=== PATIENT | female | born 1945 | race Hispanic/Latino ===

== ENCOUNTER 2024-10-18 10:12 | Emergency (ER) | payer MEDICARE, SELFPAY ==
[2024-10-18 10:16] VITALS: BP 179/70
[2024-10-18 10:17] VITALS: BP 179/70
[2024-10-18 10:38] LABS: % Basophils 0.4 % (0-2); % Eosinophils 0.5 % (0-6); % Immature Granulocytes 0.4 % (0-0.5); % Lymphocytes 14.9 % (20.5-51.1); % Monocytes 5.8 % (1.7-9.3); Absolute Eosinophils 0.1 10^3/uL (0-0.7); Absolute Lymphocytes 1.7 10^3/uL (1.2-3.4); Absolute Monocytes 0.7 10^3/uL (0.1-0.6); Absolute Neutrophils 8.9 10^3/uL (1.4-6.5); Hematocrit 38.3 % (37.0-47.0); Hemoglobin 13.8 g/dL (12.0-16.0); Mean Corpuscular Hgb 29.8 pg (27.0-31.0); Mean Corpuscular Volume 82.7 fL (81.0-99.0); Mean Platelet Volume 9.5 fL (7.4-10.4); Nucleated Red Blood Cells % 0 %; Platelet Count 209 10^3/uL (130-400); Red Blood Cell Count 4.63 10^6/uL (4.20-5.40); Red Cell Dist. Width 12.3 % (11.5-14.5); White Blood Cell Count 11.3 10^3/uL (4.8-10.8)
[2024-10-18] MEDS: TORADOL 15 MG IV (10:43)
[2024-10-18] MEDS: PROTONIX IV 40 MG IV (10:43)
[2024-10-18] MEDS: NSS 500 IV (10:44)
--- NOTE | 2024-10-18 10:44 | ED.GENMED ---
History of Present Illness
General
Chief Complaint: Abdominal Symptoms
Source: patient
Exam Limitations: none
Time Seen by Provider: 10/18/24 10:31
Nursing documentation reviewed up to this point in time: agreed with
History of Present Illness
History of Present Illness:
Patient presents to ED secondary to persistent lower abdominal pain over the past 1 week. Abdominal pain described as lower, nonradiating, without any alleviating or exacerbating factors. Denies fever or chills. Patient was evaluated by her
primary care physician and was diagnosed with UTI, for which she has been taking antibiotics for the past 7 days, without improvement symptoms. Over the past 2 days, per aide, patient has had blood noted with urination. Denies nausea, vomiting, or
diarrhea. Denies loss of appetite. Patient also has been experiencing lack of bowel movements as well as lack of urination.
Past History
Past History
ED Past Medical History: Hypercholesterolemia
ED Past Surgical History: Negative Cardiac
Social History
Tobacco: Non-smoker
Alcohol: None
Drug: None
Personal:
Living: with family
Employment: Not employed
Family History
Family History: Other (non cotributory)
Review of Systems
Review of Systems
Allergies reviewed?: Yes
All Other Systems: ROS reviewed and negative except as documented in HPI and ROS
Constitutional: Reports no symptoms; Denies fever
Respiratory: Reports no symptoms
Cardiac: Reports no symptoms
ABD/GI: Reports abdominal pain; Denies vomiting or diarrhea
: Reports bleeding
Musculoskeletal: Reports no symptoms
Skin: Reports no symptoms
Neurological: Reports no symptoms
Phy Exam
Physical Exam
Physical Exam:
Physical Exam
General: mild painful distress, not acutely ill. afebrile
Head: nc/at. eomi
Neck: supple. normal range of motion.
Heart: s1/s2 regular rate and rhythm, no murmur.
Lungs: no acute respiratory distress. clear bilaterally
Abdomen: normal bowel sounds. mild LLQ/suprapubic tenderness to palpation
Neuro: alert and oriented x 3. no focal neurological deficits
Skin: no rash
Psychiatric: well kept. interactive and cooperative
Extremities: no edema. no calf tenderness.
Course
Orders/Labs/Results
Orders:
Orders
10/18/24 10:29
Complete Blood Count/With Diff Urgent
Comprehensive Metabolic Panel Urgent
Lactic Acid Q4H
Comment: ON ICE, CANCEL 2ND ORDER IF FIRST LACTIC ACID LEVEL <2
10/18/24 10:36
CT Abd/pelvis W Iv Cont Urgent
Comment:
Reason For Exam: LLQ pain
0.9% Sodium Chloride 500 ml [Nss] 500 ml IV BOLUS
Ketorolac [Toradol] 15 mg IV NOW STA
Pantoprazole [Protonix IV] 40 mg IV NOW STA
10/18/24 12:34
Urinalysis Reflex To Culture Urgent
Date Specimen was Collected: 10/18/24
Time Specimen was Collected: 12:32
Urine Microscopic Reflex Cult Urgent
Urine Culture Urgent
ALAN Source: U
Specimen Description:
Date Specimen was Collected: 10/18/24
Time Specimen was Collected: 12:32
10/18/24 12:44
CefTRIAXone [Rocephin] 1,000 mg IV NOW STA
Abnormal Lab Results
10/18/24 10/18/24
10:29 12:34
WBC 11.3 H 10^3/uL
(4.8-10.8)
Absolute Neuts (auto) 8.9 H 10^3/uL
(1.4-6.5)
Absolute Monos (auto) 0.7 H 10^3/uL
(0.1-0.6)
Neutrophils % 78.0 H %
(42.2-75.2)
Lymphocytes % 14.9 L %
(20.5-51.1)
Glucose 151 H mg/dl
(70-99)
Lactic Acid 3.2 H mmol/L
(0.7-2.0)
Ur Occult Blood Reflex 4+ A
(Negative)
Leukocyte Esterase Rfl 2+ A
(Negative)
Urine RBC 11-15 A /HPF
(0-2)
Urine WBC (Reflex) 26-30 A /HPF
(0-5)
Urine Bacteria (Reflex) Few A
(Negative)
Urine Albumin (Reflex) 1+ A
(Neg - Trace)
10/18/24 10:29
10/18/24 10:29
Vital Signs
Initial and Last Documented VS:
Initial Vital Signs
Temp Pulse Resp BP Pulse Ox
97.9 F 97 18 179/70 97
10/18/24 10:16 10/18/24 10:16 10/18/24 10:16 10/18/24 10:16 10/18/24 10:16
Last Documented Vital Signs
Temp Pulse Resp BP Pulse Ox
97.9 F 66 19 121/65 98
10/18/24 10:16 10/18/24 14:15 10/18/24 14:15 10/18/24 14:00 10/18/24 11:15
MDM/Problems Addressed
MDM/Problems Addressed:
CT abdomen pelvis report reviewed and discussed with patient. Based on CT findings, urinary catheterization will be done, to evaluate for potential cystitis. Patient's antibiotics will be switched to Omnicef, along with PCP f/u for re-evaluation
after completion of abx
*Critical Care Note
Total Time (30-74mins, 75-104mins- exclusive of procedures): Not Applicable
ED Attending Note
-
Portions of this chart may have been created with voice recognition software.� Occasional wrong word or��sound alike� substitutions may have occurred due to the inherent limitations of voice recognition software.
Discharge Plan
Departure
Patient Disposition: Home (Routine Discharge)
Date of Disposition: 10/18/24
Time of Disposition: 12:47
Patient with high blood pressure during this ER visit?: Yes
Discharge Problem:
Cystitis
Instructions: Urinary tract infection in adults - ED discharge instructions
Prescriptions:
New
cefdinir 300 mg capsule
300 mg PO Q12H Qty: 12 0RF
No Action
atorvastatin 80 mg tablet
80 mg PO HS
donepezil 5 mg tablet
5 mg PO DAILY
risperidone 2 mg tablet
2 mg PO DAILY
lisinopril 5 mg tablet
5 mg PO DAILY
mirtazapine 7.5 mg tablet
7.5 mg PO HS
aripiprazole 2 mg tablet
2 mg PO HS
Referrals:
PRIVATE,PHYSICIAN [Family Provider] -
Activity Restrictions/Additional Instructions:
As discussed, please follow-up with your primary care physician for reevaluation. In ED, CT scan revealed likely inflammation of your bladder, likely secondary to urinary tract infection. Please continue to take prescribed antibiotics for the next
6 days.
Interventions
Interventions:
*Risk Screen - Suicide Last Done: 10/18/24 10:16
*General Assessment Last Done: 10/18/24 14:29
*Neglect/Abuse Screening Last Done: 10/18/24 10:16
*ED COVID-19 Vaccine History Last Done: 10/18/24 10:16
*Nursing Disposition Last Done: 10/18/24 14:29
KF-Xodiau-Lsflwoozwb Assessment Last Done: 10/18/24 11:45
Discharge Date and Time
Discharge Date/Time: 10/18/24 14:31
Print Language: WOLOF
[2024-10-18 10:50] LABS: Lactic Acid 3.2 mmol/L (0.7-2.0)
[2024-10-18 10:51] LABS: ALT (SGPT) 24 U/L (0-35); AST (SGOT) 25 U/L (14-36); Albumin 4.1 g/dl (3.5-5.0); Alkaline Phosphatase 88 U/L (38-126); Blood Urea Nitrogen 17 mg/dl (7-17); Calcium 9.6 mg/dl (8.4-10.2); Carbon Dioxide 24 mmol/L (22-30); Chloride 105 mmol/L (98-107); Glucose 151 mg/dl (70-99); Potassium 3.9 mmol/L (3.5-5.1); Sodium 138 mmol/L (135-145); Total Bilirubin 0.7 mg/dl (0.2-1.3); Total Protein 6.8 g/dl (6.3-8.2); eGFR > 60.00
[2024-10-18 11:00] VITALS: BP 139/54
[2024-10-18 12:35] VITALS: BP 144/61
[2024-10-18] MEDS: ROCEPHIN 1000 MG IV (12:49)
[2024-10-18 12:54] LABS: Urine Albumin 1+ (Neg - Trace); Urine Bilirubin Negative (Negative); Urine Character Clear (Clear); Urine Color Yellow; Urine Glucose Negative (Negative); Urine Ketone Negative (Negative); Urine Leukocyte 2+ (Negative); Urine Nitrite Negative (Negative); Urine Occult Blood 4+ (Negative); Urine Specific Gravity 1.005 (<1.030); Urine Urobilinogen Negative (Neg - 1+); Urine pH 6.5 (5.0-9.0)
[2024-10-18 13:00] VITALS: BP 120/57
[2024-10-18 13:26] LABS: Urine Bacteria Few (Negative); Urine Urothelial Cell 0-2 /LPF (FEW); Urine White Cell 26-30 /HPF (0-5)
[2024-10-18 14:00] VITALS: BP 121/65
== END 2024-10-18 14:31 | disposition home or self-care (01) ==
LOC: EMR 10:12
PROVIDERS: EMERGENCY PHYSICIAN Emergency Medicine
DX: N30.91 Cystitis, unspecified with hematuria (principal); E78.00 Pure hypercholesterolemia, unspecified
CPT/HCPCS: 99284; 96374; 96375; 74177; 80053; 81003; 81015; 83605; 85025; 87086; Q9967